=== PATIENT | female | born 2000 | race Caucasian/White ===

== ENCOUNTER 2021-12-24 09:22 | Inpatient (IN) | payer OTHER, SELFPAY ==
[2021-12-24 10:02] LABS: #Monocytes 0.5 10x3/uL (0.0-1.1); #Neutrophils 8.6 10x3/uL (1.5-8.4); %Basophils 0.2 % (0.0-2.0); %Lymphocytes 4.3 % (18.0-47.0); %Monocytes 5.3 % (0.0-10.0); %Neutrophils 89.7 % (40.0-75.0); Hemoglobin 12.9 g/dL (12.0-15.5); Mean Corpuscular HGB CONC 33.2 g/dL (32.0-36.0); Mean Corpuscular Hemoglobin 31.2 pg (27.0-33.0); Mean Corpuscular Volume 93.7 fl (81.6-98.3); Mean Platelet Volume 10.4 fl (7.4-10.4); Platelet Count 96 10x3/uL (150-450); RBC Distribution Width 12.2 % (11.5-14.5); Red Blood Cell (RBC) Count 4.14 10x6/uL (3.90-5.03); White Blood Cell (WBC) Count 9.6 10x3/uL (3.5-10.5)
[2021-12-24 10:17] LABS: Platelet Morphology Comment Appears Decreased; RBC Morphology Normal
[2021-12-24 10:21] LABS: Actual Bicarbonate (HCO3v) 19 mEq/L (22-28); Base Excess -8.3 mEq/L (-2.0 to +3.0); Calcium, Ionized (venous) 1.14 mmol/L (1.16-1.32); Chloride (VBG) 109 mmol/L (98-106); Hemoglobin (Hb) 13.9 g/dL (11.7-15.5); Potassium (VBG) 3.99 mmol/L (3.70-5.30); Puncture Site Other Site; RapidComm Collect By cbn; Sodium 139.1 mmol/L (133-146); pH (venous) 7.25 (7.32-7.43)
[2021-12-24 10:22] LABS: ALT (SGPT) 59 U/L (8-55); AST (SGOT) 138 U/L (5-34); Albumin 3.5 g/dL (3.5-5.0); Alkaline Phosphatase 63 U/L (40-100); Anion Gap 15 mmol/L (10-20); BUN (Urea Nitrogen) 13 mg/dL (7.0-18.7); Bilirubin, Total 0.8 mg/dL (0.2-1.2); Calc. Creatinine Clearance 0 mL/min (70-130); Calcium 7.9 mg/dL (7.8-10.44); Carbon Dioxide 14 mmol/L (22-29); Chloride 116 mmol/L (98-107); Estimated GFR 105; Globulin 1.8 g/dL (2.4-3.5); Glucose 100 mg/dL (70-105); Potassium 4.4 mmol/L (3.5-5.1); Protein, Total 5.3 g/dL (6.0-8.3); Sodium 141 mmol/L (136-145)
[2021-12-24 10:40] LABS: Bilirubin Neg (Negative); Blood, Urine 250 (Negative); Clarity Clear (Clear); Glucose, Urine (Dipstick) Normal (Negative); Ketone, Urine 50 mg/dL (Negative); Leukocyte Negative (Negative); Nitrite Negative (Negative); Protein, Urine (Dipstick) Negative (Neg-Trace); Specific Gravity, Urine 1.015 (1.005-1.030); Urobilinogen Normal mg/dL (Less than 2)
[2021-12-24 10:54] LABS: RBC/HPF 0-3 HPF (0-3); Squamous Epithelial 0-3 HPF (0-3); WBC/HPF 0-3 HPF (0-3)
[2021-12-24 10:55] LABS: Bacteria/HPF Rare-Few HPF (None Seen)
[2021-12-24] MEDS ORDERED: Aspirin Chewable 81 MG TAB ONE (10:57)
[2021-12-24 10:59] LABS: BHCG - Serum Negative (NEGATIVE); Pregs Control Background? CLEAR/WHITE (CLR/WHITE); Pregs Control Bar Appear? YES (CONTROL BAR)
[2021-12-24] MEDS ORDERED: Ondansetron ODT 4 MG TAB PO PRN (11:00)
[2021-12-24] MEDS ORDERED: Ondansetron PF 4 MG/2 ML Vial IVP PRN (11:00)
[2021-12-24] MEDS ORDERED: Acetaminophen 325 MG TAB PO PRN (11:00)
[2021-12-24 11:06] LABS: CKMB 138.1 ng/mL (0-6.6)
[2021-12-24] MEDS ORDERED: Oseltamivir 75 MG CAP PO SCH (11:15)
[2021-12-24 11:56] LABS: Magnesium 1.5 mg/dL (1.7-2.2)
[2021-12-24 12:10] VITALS: BMI 22.6
[2021-12-24] MEDS ORDERED: Magnesium 2 GM/50 ML(in water) 2 GM in Premix Bag 1 BAG IVPB SCH (12:15)
[2021-12-24] MEDS: Sodium Chloride 0.9% 1,000 ML IV SCH (12:32)
[2021-12-24 13:06] LABS: Lactic Acid 1.5 mmol/L (0.5-2.2)
[2021-12-24 13:19] LABS: Troponin I 0.456 ng/mL (< 0.028)
[2021-12-24 17:00] LABS: Troponin I 0.362 ng/mL (< 0.028)
[2021-12-24 17:36] LABS: Cardiac Risk 2.4 (Less than 4.5)
[2021-12-24 18:10] LABS: Amphetamine Not Detected (NotDetected); Barbiturates Screen Not Detected (NotDetected); Benzodiazepine Screen Detected (NotDetected); Cocaine Metabolite Screen Not Detected (NotDetected); Methadone Not Detected (NotDetected); Methamphetamine Not Detected (NotDetected); Opiate Screen Not Detected (NotDetected); Oxycodone Screen Not Detected (NotDetected); Phencyclidine (PCP) Not Detected (NotDetected); THC/Cannabinoid Screen Not Detected (NotDetected); Tricyclic Screen Not Detected (NotDetected)
[2021-12-24 18:27] LABS: Free T4 (Free Thyroxine) 1.37 ng/dL (0.70-1.48)
[2021-12-24] MEDS: Oseltamivir 75 MG CAP PO SCH (21:09)
[2021-12-24] MEDS ORDERED: Promethazine HCl 12.5 MG in Sodium Chloride 0.9% 50 ML IVPB SCH (22:45)
[2021-12-25] MEDS: Sodium Chloride 0.9% 1,000 ML IV SCH (01:27)
[2021-12-25 05:09] LABS: #Monocytes 0.6 10x3/uL (0.0-1.1); %Basophils 0.1 % (0.0-2.0); %Eosinophils 0.1 % (0.0-6.0); %Lymphocytes 31.2 % (18.0-47.0); %Monocytes 9.3 % (0.0-10.0); %Neutrophils 58.7 % (40.0-75.0); Hemoglobin 11.9 g/dL (12.0-15.5); Mean Corpuscular HGB CONC 33.7 g/dL (32.0-36.0); Mean Corpuscular Hemoglobin 31.4 pg (27.0-33.0); Mean Corpuscular Volume 93.1 fl (81.6-98.3); Mean Platelet Volume 11.7 fl (7.4-10.4); Platelet Count 86 10x3/uL (150-450); RBC Distribution Width 12.3 % (11.5-14.5); Red Blood Cell (RBC) Count 3.79 10x6/uL (3.90-5.03); White Blood Cell (WBC) Count 6.8 10x3/uL (3.5-10.5)
[2021-12-25 05:28] LABS: ALT (SGPT) 1073 U/L (8-55); AST (SGOT) 1073 U/L (5-34); Albumin 3.3 g/dL (3.5-5.0); Alkaline Phosphatase 53 U/L (40-100); Anion Gap 10 mmol/L (10-20); BUN (Urea Nitrogen) 9 mg/dL (7.0-18.7); Bilirubin, Total 0.9 mg/dL (0.2-1.2); Calc. Creatinine Clearance 120 mL/min (70-130); Calcium 8.1 mg/dL (7.8-10.44); Carbon Dioxide 22 mmol/L (22-29); Chloride 114 mmol/L (98-107); Estimated GFR 117; Globulin 1.6 g/dL (2.4-3.5); Glucose 75 mg/dL (70-105); Potassium 3.5 mmol/L (3.5-5.1); Protein, Total 4.9 g/dL (6.0-8.3); Sodium 142 mmol/L (136-145)
[2021-12-25] MEDS: Oseltamivir 75 MG CAP PO SCH ×2 (09:03→20:12)
[2021-12-25] MEDS ORDERED: Magnevist 469MG/ML 20 ML VIAL ONE (09:19)
[2021-12-25] MEDS ORDERED: Ibuprofen 400 MG TAB PO PRN (10:06)
[2021-12-25] MEDS ORDERED: Famotidine 20 MG TAB PO SCH (10:30)
[2021-12-25 11:36] LABS: MONO NEGATIVE CONTROL ZONE White (Negative) (White); MONO POSITIVE CONTROL Pink Line (Positive) (PINK/RED); Mononucleosis NEGATIVE (NEGATIVE)
[2021-12-25 11:46] LABS: INR-International Normal Ratio 1.2; PTT 27.3 sec (22.0-33.0); Prothrombin Time 13.3 sec (9.5-12.1)
[2021-12-25] MEDS ORDERED: Promethazine HCl 25 MG in Sodium Chloride 0.9% 50 ML IVPB PRN (11:48)
[2021-12-25 11:49] LABS: Acetaminophen Less than 10.0 mcg/mL (10.0-30.0); Bilirubin, Direct 0.4 mg/dL (0.1-0.3); Bilirubin, Total 1.1 mg/dL (0.2-1.2); Iron 123 ug/dL (50-170); Iron Binding Capacity, Total 286 mcg/dL (265-497)
[2021-12-25 12:00] LABS: Troponin I 0.298 ng/mL (< 0.028)
[2021-12-25 12:21] LABS: HBSAg Index 0.23 S/CO (0-0.99); HIV (1/2) Antibody/Antigen Non-Reactive (NonReactive); HIV 1/2 INDEX 0.07 S/CO (<1.00); Hep B Surf Ag Non-Reactive S/CO (NonReactive)
[2021-12-25] MEDS: Dextrose 5 %-0.45 % NaCl 1,000 ML IV SCH (14:10)
[2021-12-25] MEDS: Famotidine 20 MG TAB PO SCH (20:12)
[2021-12-25] MEDS ORDERED: Enoxaparin Sodium 40 MG/0.4 ML SYRINGE SC SCH (21:00)
[2021-12-26 01:49] LABS: HBCM Index 0.06 S/CO (0-0.79); Hep A IgM AB Non-Reactive (NonReactive); Hep A IgM S/CO 0.17 S/CO (0-0.79); Hep C IgG Ab Non-Reactive (NonReactive); Hep C Index 0.05 S/CO (0-0.79); Hepatitis B Core IgM Abs Non-Reactive (NonReactive)
[2021-12-26 05:50] LABS: ALT (SGPT) 694 U/L (8-55); AST (SGOT) 398 U/L (5-34); Albumin 3.5 g/dL (3.5-5.0); Alkaline Phosphatase 55 U/L (40-100); Anion Gap 10 mmol/L (10-20); BUN (Urea Nitrogen) 7 mg/dL (7.0-18.7); Calc. Creatinine Clearance 114 mL/min (70-130); Calcium 8.3 mg/dL (7.8-10.44); Carbon Dioxide 26 mmol/L (22-29); Chloride 110 mmol/L (98-107); Estimated GFR 110; Globulin 1.7 g/dL (2.4-3.5); Glucose 90 mg/dL (70-105); Potassium 3.9 mmol/L (3.5-5.1); Protein, Total 5.2 g/dL (6.0-8.3); Sodium 142 mmol/L (136-145)
[2021-12-26 05:54] LABS: #Monocytes 0.6 10x3/uL (0.0-1.1); #Neutrophils 2.2 10x3/uL (1.5-8.4); %Basophils 0.5 % (0.0-2.0); %Eosinophils 0.7 % (0.0-6.0); %Lymphocytes 51.9 % (18.0-47.0); %Monocytes 9.4 % (0.0-10.0); %Neutrophils 37.3 % (40.0-75.0); Hemoglobin 12.2 g/dL (12.0-15.5); Mean Corpuscular HGB CONC 33.7 g/dL (32.0-36.0); Mean Corpuscular Volume 91.9 fl (81.6-98.3); Mean Platelet Volume 11.2 fl (7.4-10.4); Platelet Count 100 10x3/uL (150-450); RBC Distribution Width 12.2 % (11.5-14.5); Red Blood Cell (RBC) Count 3.94 10x6/uL (3.90-5.03); White Blood Cell (WBC) Count 5.9 10x3/uL (3.5-10.5)
[2021-12-26 05:56] LABS: INR-International Normal Ratio 1.1; PTT 35.9 sec (22.0-33.0); Prothrombin Time 11.5 sec (9.5-12.1)
[2021-12-26 06:42] LABS: Band 4 % (5-11); Lymphocytes 50 % (28-48); Monocytes 7 % (0-4)
[2021-12-26 06:43] LABS: Neutrophil 39 % (31-61); Platelet Morphology Comment Appears Decreased; RBC Morphology Normal
[2021-12-26 08:17] VITALS: BP 92/60; TEMP 97.2
[2021-12-26] MEDS: Oseltamivir 75 MG CAP PO SCH (08:23)
[2021-12-26] MEDS: Famotidine 20 MG TAB PO SCH (08:23)
[2021-12-26] MEDS: Dextrose 5 %-0.45 % NaCl 1,000 ML IV SCH (08:25)
[2021-12-26] MEDS ORDERED: Benzonatate 100 MG CAP PO PRN (08:34)
[2021-12-26 13:27] LABS: ANA Symphony (Qualitative) Negative (Negative); ANA Symphony (Quantitative) 0.3 Ratio (< 0.7 Negative); dsDNA IgG Antibody 1.4 IU/mL (<10 Negative)
[2021-12-27 11:41] LABS: EBV VCA IgM <36.0 U/mL (0.0-35.9); Nuclear AG IgG (EBNA) AB <18.0 U/mL (0.0-17.9)
[2021-12-27 14:38] LABS: Alpha-1-Antitrypsin 152 mg/dL (100-188)
== END 2021-12-26 09:33 | disposition home or self-care (01) | DRG 871 ==
LOC: CSHERS 09:22 → SUATTDRO 09:22 → INTOOBSV 11:54 → CSHTELE 11:54 → OBSVTOIN 12-25 09:56
PROVIDERS: ADMIT Family Medicine; ATTEND Family Medicine
DX: A41.89 Other specified sepsis (principal); I40.0 Infective myocarditis; K72.00 Acute and subacute hepatic failure without coma; R65.20 Severe sepsis without septic shock; J10.1 Influenza due to other identified influenza virus with other respiratory manifestations; Z20.822 Contact with and (suspected) exposure to COVID-19; E86.0 Dehydration; R79.89 Other specified abnormal findings of blood chemistry; R74.01 Elevation of levels of liver transaminase levels; Z90.89 Acquired absence of other organs; B97.89 Other viral agents as the cause of diseases classified elsewhere
CPT/HCPCS: 36415; 70450; 70553; 80053; 80061; 80074; 80143; 80306; 81003; 81015; 82103; 82247; 82390; 82553; 82805; 83540; 83550; 83605; 83615; 83735; 84439; 84443; 84481; 84484; 84703; 85025; 85610; 85730; 86038; 86225; 86308; 86664; 86665; 87040; 87086; 87389; 87497; 93005; 93306; 94760; 96374; 96375; 80307; A9579; G0378; J1650; J2405; J2550; J3475; J7042; J7050; U0003; U0005